=== PATIENT | male | born 1985 | race African-American/Black ===

== ENCOUNTER 2018-10-30 17:38 | Emergency (ER) | payer OTHER ==
[~2018-10-30] VITALS: Ht 190.5 cm; Wt 88.5 kg
[~2018-10-30 17:38] MED LIST: HYDACE5 PO; PENVK500 PO; RXTRAM50 PO; TRAM50 PO
== END 2018-10-30 18:27 | disposition home or self-care (01) ==
LOC: ER 17:38
DX: R45.851 Suicidal ideations (principal); R45.1 Restlessness and agitation; R45.4 Irritability and anger
CPT/HCPCS: 99284

== ENCOUNTER 2020-11-23 09:33 | Emergency (ER) | payer SELFPAY ==
[~2020-11-23] VITALS: Ht 190.5 cm; Wt 86.2 kg
[2020-11-23] MEDS ORDERED: IBU800 MG PO (10:34)
[2020-11-23] MEDS ORDERED: Bactrim Ds Tab1 EACH PO (10:34)
== END 2020-11-23 10:59 | disposition home or self-care (01) ==
LOC: ER 09:33
DX: S60.511A Abrasion of right hand, initial encounter (principal); F17.210 Nicotine dependence, cigarettes, uncomplicated; Z23 Encounter for immunization; W55.03XA Scratched by cat, initial encounter
CPT/HCPCS: 90471; 90714; 99282-25